=== PATIENT | female | born 1960 ===

== ENCOUNTER 2021-05-03 10:28 | Emergency (ER) | payer SELFPAY ==
--- NOTE | 2021-05-03 12:57 | Emergency Department Report ---
ED Lower Extremity HPI - General Chief Complaint: Extremity Injury, Lower Stated Complaint: LT LEG PAIN Time Seen by Provider: 05/03/21 12:33 Source: patient Mode of arrival: Ambulatory Limitations: Physical Limitation - History of Present Illness Initial Comments: 60 YO COMES TO ER WITH RLE BRUISING SINCE SAT WHEN SHE FELL ON AN ESCALATOR SHE IS ON ELOQUIS FOR AFIB THE RLE FROM KNEE TO TOE HAS AREAS OF ECCHYMOSIS PT IS AMBULATORY AND NEURO VASC INTACT SHE HAS FULL SENSATION AND MOTOR MOVEMENT -: Sudden, days(s) Place: home Severity: mild - Related Data Allergies Allergy/AdvReac Type Severity Reaction Status Date / Time No Known Allergies Allergy Unverified 05/03/21 10:53 ED Review of Systems ROS: Stated complaint: LT LEG PAIN Other details as noted in HPI Comment: All other systems reviewed and negative ED Past Medical Hx - Past Medical History Previous Medical History?: Yes Hx Hypertension: Yes Additional medical history: A FIB - Surgical History Past Surgical History?: Yes Hx Cholecystectomy: Yes Additional Surgical History: 2 KNEE REPLACEMENT /FEMUR - Family History Family history: no significant - Social History Smoking Status: Never Smoker Substance Use Type: None ED Physical Exam - General Limitations: Physical Limitation General appearance: alert, in no apparent distress - Head Head exam: Present: atraumatic, normocephalic - Eye Eye exam: Present: normal appearance - ENT ENT exam: Present: mucous membranes moist - Neck Neck exam: Present: normal inspection - Respiratory Respiratory exam: Present: normal lung sounds bilaterally. Absent: respiratory distress - Cardiovascular Cardiovascular Exam: Present: regular rate, normal rhythm. Absent: systolic murmur, diastolic murmur, rubs, gallop - GI/Abdominal GI/Abdominal exam: Present: soft, normal bowel sounds - Extremities Exam Extremities exam: Present: normal inspection - Back Exam Back exam: Present: normal inspection - Neurological Exam Neurological exam: Present: alert, oriented X3 - Psychiatric Psychiatric exam: Present: normal affect, normal mood - Skin Skin exam: Present: warm, dry, intact, normal color, ecchymosis, other. Absent: rash ED Course Vital Signs 05/03/21 05/03/21 11:00 12:59 Temperature 98.7 F 98.0 F Pulse Rate 91 H 76 Respiratory 20 20 Rate Blood Pressure 147/90 Blood Pressure 143/88 [Right] O2 Sat by Pulse 98 100 Oximetry ED Lower Extremity MDM - Medical Decision Making OLD ECCHYMOSIS TO THE RLE DP /PT PLUS 2 COMPARTMENTS SOFT MOTOR AND SENSORY INTACT Vital Signs 05/03/21 05/03/21 11:00 12:59 Temperature 98.7 F 98.0 F Pulse Rate 91 H 76 Respiratory 20 20 Rate Blood Pressure 147/90 Blood Pressure 143/88 [Right] O2 Sat by Pulse 98 100 Oximetry PT EDUCATED ON HEMATOMA CARE SHE WILL AVOID NSAIDS GIVEN THIS IS 5 DAYS OLD I THINK SHE IS ON THE HEALING SIDE OF THIS INJURY DC HOME WITH DC PLAN OF CARE SHE VERBALIZES UNDERSTANDING OF PLAN OF CARE. - Differential Diagnosis HEMATOMA Critical care attestation.: If time is entered above; I have spent that time in minutes in the direct care of this critically ill patient, excluding procedure time. ED Disposition Clinical Impression: Traumatic ecchymosis of multiple sites of right lower extremity Disposition: 01 HOME / SELF CARE / HOMELESS Is pt being admited?: No Does the pt Need Aspirin: No Condition: Stable Instructions: Contusion, [id number] Additional Instructions: WARM COMPRESSES AVOID MOTRIN AND ASPIRIN UNTIL THIS RESOLVED REST/ELEVATE FOLLOW UP WITH PCP IF IT WORSENS Referrals: FERNANDO STEVENS MD [Staff Physician] - 3-5 Days Time of Disposition: 12:56
[2021-05-03 13:00] VITALS: BP 143/88
== END 2021-05-03 12:59 | disposition home or self-care (01) ==
LOC: ED 10:28
DX: S80.11XA Contusion of right lower leg, initial encounter (principal); I10 Essential (primary) hypertension; I48.91 Unspecified atrial fibrillation; Z90.49 Acquired absence of other specified parts of digestive tract; Z96.653 Presence of artificial knee joint, bilateral; W10.0XXA Fall (on)(from) escalator, initial encounter; Y93.89 Activity, other specified; Y92.89 Other specified places as the place of occurrence of the external cause; Y99.8 Other external cause status
CPT/HCPCS: 99282